=== PATIENT | female | born 2000 | race Asian ===

== ENCOUNTER 2020-12-21 13:50 | Emergency (ER) | payer OTHER ==
[~2020-12-21] VITALS: Ht 154.9 cm; Wt 44.1 kg
[2020-12-21] MEDS: triamcinolone acetonide 40mg/ml inj IM ONE ×2 (14:29→14:38)
--- NOTE | 2020-12-21 14:34 | NUR ---
Patient refused shot of kenalog. Camron OCONNOR updated, orders to give 40mg prednisone PO instead.
[2020-12-21] MEDS ORDERED: predniSONE 20 mg tablet PO ONE (14:35)
[2020-12-21 15:42] VITALS: BP 106/58
== END 2020-12-21 15:48 | disposition home or self-care (01) ==
LOC: ER 13:51
DX: T75.89XA Other specified effects of external causes, initial encounter (principal); X58.XXXA Exposure to other specified factors, initial encounter; Y93.89 Activity, other specified; Y92.89 Other specified places as the place of occurrence of the external cause; Y99.8 Other external cause status
CPT/HCPCS: 99283; J7512; 96372; J3301